=== PATIENT | male | born 1980 | race Caucasian/White ===

== ENCOUNTER 2016-08-07 22:01 | Emergency (ER) | payer BC ==
[~2016-08-07 22:01] MED LIST: OXYCODONE HCL A1 TAB PO
== END 2016-08-07 22:52 | disposition home or self-care (01) ==
LOC: ED 22:01
DX: S00.83XA Contusion of other part of head, initial encounter (principal); S00.81XA Abrasion of other part of head, initial encounter; R51 Headache; Y04.8XXA Assault by other bodily force, initial encounter; W22.8XXA Striking against or struck by other objects, initial encounter; X58.XXXA Exposure to other specified factors, initial encounter; Y92.018 Other place in single-family (private) house as the place of occurrence of the external cause
CPT/HCPCS: J1885; J2360

== ENCOUNTER 2016-10-15 16:03 | Emergency (ER) | payer BC ==
[2016-10-15] MEDS ORDERED: KETOROLAC10 MG PO (17:56)
[2016-10-15 18:14] VITALS: BP 126/78
== END 2016-10-15 18:12 | disposition home or self-care (01) ==
LOC: ED 16:03
DX: S40.011A Contusion of right shoulder, initial encounter (principal); S70.12XA Contusion of left thigh, initial encounter; S20.221A Contusion of right back wall of thorax, initial encounter; V86.59XA Driver of other special all-terrain or other off-road motor vehicle injured in nontraffic accident, initial encounter; Y99.0 Civilian activity done for income or pay
CPT/HCPCS: J1885

== ENCOUNTER 2017-01-24 23:13 | Emergency (ER) | payer BC ==
[~2017-01-24] VITALS: Ht 193 cm; Wt 114.5 kg
[~2017-01-24 23:13] MED LIST changes: +KETOROLAC10 MG PO
[2017-01-25 00:48] VITALS: BP 150/90
== END 2017-01-25 00:48 | disposition home or self-care (01) ==
LOC: ED 23:13
DX: S80.812A Abrasion, left lower leg, initial encounter (principal); W22.8XXA Striking against or struck by other objects, initial encounter; Y92.830 Public park as the place of occurrence of the external cause; Z23 Encounter for immunization
CPT/HCPCS: 90715; A6402